=== PATIENT | male | born 1945 | race Caucasian/White ===

== ENCOUNTER 2018-01-20 11:12 | Emergency (ER) | payer OTHER ==
[~2018-01-20] VITALS: Ht 175.3 cm; Wt 98.0 kg
[~2018-01-20 11:12] MED LIST: B-1100 MG PO; B-12500 MCG PO; C-10001000 M1 PO; CLONAZEPAM0.5 MG PO; COD LIVER OIL1 EACH PO; GLYCOTROL CAPS1 EACH PO; K-TAB ER20 MEQ PO; OSTERA TABLET1 EACH PO; PNEU16DI2; SV B COMPLEX SU59 ML PO; TARKA 4/2401 BOTTLE PO; TARKA ER 2-2401 EACH PO; VIT K PO; ZOLOFT100 MG PO; [UNRECOGNIZED DRUG - OTHER] PO
[2018-01-20] MEDS ORDERED: TRAZODONE HCL100 MG (11:46)
[2018-01-20] MEDS ORDERED: XARELTO20 MG (11:47)
== END 2018-01-20 16:34 | disposition home or self-care (01) ==
LOC: ER 11:12
DX: R06.02 Shortness of breath (principal); I48.91 Unspecified atrial fibrillation

== ENCOUNTER 2021-05-07 10:41 | Outpatient (CLI) | payer OTHER ==
[~2021-05-07 10:41] MED LIST changes: +TRAZODONE HCL100 MG; +XARELTO20 MG
== END 2021-05-07 10:54 | disposition home or self-care (01) ==
LOC: SONOGRAMA 10:41
PROVIDERS: ATTEND Urology
DX: N28.89 Other specified disorders of kidney and ureter (principal); N32.81 Overactive bladder; R35.0 Frequency of micturition; R35.1 Nocturia